=== PATIENT | male | born 1945 | race Caucasian/White ===

== ENCOUNTER → 2016-10-14 | Outpatient (CLI) | payer OTHER ==
--- NOTE | 2016-10-14 10:51 | US ---
Neck Ultrasound Indication: Nontoxic single thyroid nodule. Technique: Thyroid ultrasound is performed. Comparison: CT scan of the neck March 23, 2016. Findings: The right thyroid gland measures 4.6 x 2.9 x 2.2 cm. The left thyroid gland measures 4.3 x 2.1 x 1.7 cm. In the right thyroid gland, there is a single heterogeneous solid nodule of 3.4 x 2.5 x 1.9 cm. There appear to be specks of calcification within this nodule. It is relatively decreased in vascularity compared to the surrounding thyroid gland. Incidentally noted is a mild amount of carotid plaque. The thyroid isthmus is normal at 3 mm. The lef t thyroid gland is homogeneous. Impression: Dominant hypovascular solid right thyroid nodule of 3.4 x 2.5 x 1.9 cm, with intrinsic sp ecks of calcification. This is unchanged in size compared to prior CT scan in March 20162015. Given i ts ultrasound characteristics, FNA is strongly suggested based on guidelines published in Radiology, [facility] journal.
== END ==
LOC: FIMAGING 08:21
PROVIDERS: ATTEND Internal Medicine
DX: E04.1 Nontoxic single thyroid nodule (principal)

== ENCOUNTER 2016-10-19 08:32 | Inpatient (IN) | payer OTHER ==
[2016-09-25 09:41] LABS: % IMMATURE GRANULYOCYTES 0.6 % (0.0-1.1); ABSOLUTE IMMATURE GRANULOCYTES 0.04 10^3/uL (0.00-0.10); ADD DIFF? NO; ADD MORPH? NO; ADD SCAN? NO; ATYPICAL LYMPHOCYTE FLAG 0 (0-99); FRAGMENT RBC FLAG 0 (0-99); HEMATOCRIT 47.8 % (40.0-51.0); HEMOGLOBIN 16.1 g/dL (13.7-17.5); LEFT SHIFT FLG 0 (0-99); LIPEMIA HEMOLYSIS FLAG 80 (0-99); MEAN CELL HEMOGLOBIN 30.7 pg (27.9-34.1); MEAN CELL HEMOGLOBIN CONCENTR. 33.7 g/dL (32.4-36.7); MEAN PLATELET VOLUME 9.7 fL (8.7-11.7); PLATELET CLUMPS FLAG 0 (0-99); PLATELET COUNT 188 10^3/uL (150-400); RED BLOOD CELL COUNT 5.25 10^6/uL (4.40-6.38); RED CELL DISTRIBUTION WIDTH 12.5 % (11.5-15.2)
[2016-09-25 10:35] LABS: ANION GAP 10 mEq/L (8-16); CALCIUM 9.6 mg/dL (8.5-10.4); CARBON DIOXIDE 28 mEq/l (22-31); CHLORIDE 106 mEq/L (97-110); CREATININE 1.1 mg/dL (0.7-1.3); GLOMERULAR FILTRATION RATE > 60; GLUCOSE 110 mg/dL (70-100); POTASSIUM 4.9 mEq/L (3.5-5.2); SODIUM 144 mEq/L (134-144)
[2016-10-19] MEDS ORDERED: LR 1,000 ML IV ONE (09:09)
[2016-10-19] MEDS ORDERED: ROPIVACAINE HCL 20 MG/10 ML INJ EP ONE (09:18)
[2016-10-19] MEDS ORDERED: MIDAZOLAM 2 MG/2 ML VIAL ONE (10:48)
[2016-10-19] MEDS ORDERED: ROPIVACAINE HCL 150 MG/30 ML INJ ONE (10:53)
[2016-10-19] MEDS ORDERED: PROPOFOL 200 MG/20 ML VIAL ONE (10:55)
[2016-10-19] MEDS ORDERED: ROCURONIUM 50 MG/5 ML VIAL ONE (10:55)
[2016-10-19] MEDS ORDERED: fentaNYL 250 MCG/5 ML INJ ONE (10:55)
[2016-10-19] MEDS ORDERED: DEXAMETHASONE 4 MG/ML VIAL ONE (10:55)
[2016-10-19] MEDS ORDERED: ceFAZolin 2 GM/DEXTROSE 100 ML IV ONE (11:00)
[2016-10-19] MEDS ORDERED: LIDOCAINE 2% 100 MG/5 ML SYR IVP ONE (11:10)
[2016-10-19] MEDS ORDERED: PHENYLEPHRINE HCL 100 MCG/ML SYR ONE (11:25)
[2016-10-19] MEDS ORDERED: PROMETHAZINE HCL 25 MG/ML INJ IVP PRN (14:09)
[2016-10-19] MEDS ORDERED: ONDANSETRON 4 MG/2 ML VIAL IVP PRN (14:09)
[2016-10-19] MEDS ORDERED: ACETAMINOPHEN 325 MG TAB PO PRN (14:09)
[2016-10-19] MEDS ORDERED: OXYCODONE/APAP 5/325 TAB PO PRN (14:09)
--- NOTE | 2016-10-19 15:51 | DX ---
Portable Right Shoulder, 2 Views, at 2:23 p.m. Clinical History: 70-year-old male in the PACU after a right total shoulder replacement. Comparison Study: CT scan of the right upper extremity, dated April 02, 2016. Findings: In the interim, the patient has undergone a right shoulder arthroplasty, with anatomic ali gnment. There is some degenerative change of the acromioclavicular joint. There is some right basilar discoid subsegmental atelectasis. Impression: Status post right shoulder arthroplasty, with anatomic alignment.
--- NOTE | 2016-10-19 16:58 | GOP ---
[f rep st] OPERATIVE REPORT DATE OF OPERATION: 10/19/2016 SURGEON: Devin Martinez MD ABRASIVE WATER JET CUTTER OPERATOR: Suni oHugh, PAC, medically required for positioning of the arm during total shoulder replacement and careful retraction of vital neurovascular structures. PREOPERATIVE DIAGNOSIS: Right shoulder osteoarthritis, end-stage. POSTOPERATIVE DIAGNOSIS: Right shoulder osteoarthritis, end-stage. PROCEDURE PERFORMED: 1. Open right total shoulder replacement. 2. Open subpectoral biceps tenodesis. 3. Open loose body removal, 5 x 1 cm loose body in the bicipital sheath. FINDINGS: ESTIMATED BLOOD LOSS: 300 cc. Total surgical time was 2 hours. INDICATIONS: 70-year-old male with a history of cardiac issues with a painful right total shoulder osteoarthritis. Clinical radiographic and CT scan confirmed intact cuff as well as fairly neutral glenoid with osteoarthritis. The patient elects for operative intervention after failing conservative management. The patient identified in the preoperative holding area. He was feeling well today. He just got over a head cold. The right side was identified. was at the bedside for questions and answers. MRSA screen was negative. Preoperative medical clearance and cardiac clearance, deemed an acceptable candidate for surgery. DESCRIPTION OF PROCEDURE: The patient was brought into the operating room. Beach chair positioned. General anesthesia, interscalene block. All extremities well padded. The head of bed was about 35 degrees. The right upper extremity was prepped and draped in the usual sterile fashion. Surgical time-out was performed. Standard coracoid humeral incision was made. Deltopectoral interval was developed. Cephalic vein was taken laterally. The conjoined tendon was identified. All bleeders were cauterized. The clavipectoral fascia was taken. The conjoined tendon was freed up of adhesions. The subdeltoid bursa was freed up of adhesions. A Kolbel retractor was placed. The subscapularis was identified. The inferior arcuate arteries were identified and ligated. We did a subscapularis tenotomy. We used FiberTape in Noam-Den fashion for retraction and for fixing the tenotomy at the end. We did a full inferior capsular release with finger protection of the axillary nerve when we swept inferior to the subscapularis. We did a capsulectomy, a labrectomy anteriorly. With progressive external rotation, we freed up osteophytes inferiorly and posteriorly. In about 30 degrees of retroversion, we did a humeral osteotomy at about 135 degrees. We placed a humeral head protector, took the arm out of the Cool mejia, and placed the arm on a padded Pabon for glenoid exposure. We completed the inferior capsular release and posterior capsular release. We had a nice pocket in the back. We had to free up a little bit of the pec tendon, about 2 cm, to allow posterior retraction of the humerus. The glenoid looked about a medium to small. We found the center-center tod, and performed an Arthrex pegged glenoid technique with cannulated and Nautilus reamers. We placed a trial, looked excellent. I then cemented in the real with bone graft centrally as well as the cement superior and inferiorly on the smiley face. The arm was placed in a Cool mejia. We dislocated the humeral head, placed Hohmann's above and below, and performed a central canal reaming, broaching up to 10, and then placed the real 10 stem in there. We then trialed the head, and had nice coverage. We had to eccentrically put it posteriorly to cover and so we did not have to have any ledge or overhang anteriorly. We tried a 50 and a 52, and the 52 had better coverage. We had about 40% translation posteriorly. There was not too much tension on the subscapularis, and we placed the real implant according to predetermined wynn. The arm was taken through a gentle range of motion, and we had a nice approximation of the joint. We repaired the subscapularis with horizontal mattress stitches, and then an over running stitch with another FiberTape from the rotator interval down inferiorly. The wound was copiously washed out with 500 cc of warm normal saline, 2-0 PDS for closure, and then 3-0 Monocryl for skin closure. Mastisol and Steri-Strips were used, Xeroform, 4 x 4's, and Medipore tape applied. IMPLANTS USED: 1. Arthrex Boone #10 stem. 2. Arthrex humeral head 52 mm diameter x 20 mm thickness and a medium vault lock glenoid by Arthrex cemented with bone graft centrally. COMPLICATIONS: None. DISPOSITION: Extubated, awake to the PACU in stable condition. /[id number]/MODL MTDD
[2016-10-19] MEDS: KETOROLAC 30 MG/1 ML SDV IVP SCH ×2 (17:14→23:46)
[2016-10-19] MEDS: D5W 1/2 NS W/ 20 KCl/L 1,000 ML IV SCH (17:14)
[2016-10-19] MEDS ORDERED: ceFAZolin 2 GM/DEXTROSE 100 ML IV SCH (19:00)
[2016-10-19 19:27] VITALS: RESP 16
[2016-10-19] MEDS: DOCUSATE SODIUM 100 MG CAP PO SCH (20:05)
[2016-10-19] MEDS: ceFAZolin 2 GM in D5W 100 ML IV SCH (20:05)
[2016-10-20] MEDS: ceFAZolin 2 GM in D5W 100 ML IV SCH (02:44)
[2016-10-20] MEDS: D5W 1/2 NS W/ 20 KCl/L 1,000 ML IV SCH (03:33)
[2016-10-20] MEDS: KETOROLAC 30 MG/1 ML SDV IVP SCH ×2 (05:50→12:18)
[2016-10-20] MEDS: DOCUSATE SODIUM 100 MG CAP PO SCH (08:48)
[2016-10-20] MEDS ORDERED: ENOXAPARIN 40 MG/0.4 ML SYR SC SCH (09:00)
--- NOTE | 2016-10-20 10:05 | SOAPPROG ---
SOAP Progress Note Assessment/Plan: Assessment: POD 1 s/p R TSA, open subpectoral biceps tenodesis, open loose body removal 5ml in the bicipital sheath Plan: Pending PT/OT clearance, Reymundo to be d/c later today. His has already gotten Rx at pharmacy. RTC within 1 week for f/u with Dr. Martinez and PT progression Begin formal PT within 2 weeks 10/20/16 10:05 10/20/16 10:07 Subjective: Reymundo is doing great, 1/10 pain while at rest. Has ambulated to the restroom and has had BM. Using ice machine on R shoulder and is sitting comfortably. Awaiting PT so as to be discharged home. No acute issues overnight; all questions answered. Objective: Vital Signs Temp Pulse Resp BP Pulse Ox 36.8 C 89 16 102/71 95 10/20/16 07:37 10/20/16 07:37 10/20/16 07:37 10/20/16 07:37 10/20/16 07:37 Laboratory Results 09/25/16 09:18 09/25/16 09:18 10/19/16 10/20/16 10/21/16 05:59 05:59 05:59 Intake Total 3450 Output Total 900 Balance 2550 AAO X3 RRR Unlabored breathing NTTP near surgical incision without erythema, warmth near incision Dressing C/D/I; Sensation intact RUE Strength intact Distal pulses 3+ Cap refill ><2 sec BLE without edema ICD10 Worksheet Patient Problems: Problems Problem Status Diagnosed Ataxia Acute Nausea & vomiting Acute TIA (transient ischemic attack) Acute
[2016-10-20 12:08] VITALS: BP 116/81; PULSE 112; TEMP 98.5; O2SAT 92
== END 2016-10-20 13:52 | disposition home or self-care (01) | DRG 483 ==
LOC: FSGY 08:32 → F3N 14:09
PROVIDERS: ADMIT Orthopaedic Surgery; ATTEND Orthopaedic Surgery
DX: M19.011 Primary osteoarthritis, right shoulder (principal); M75.21 Bicipital tendinitis, right shoulder; M24.011 Loose body in right shoulder; I42.9 Cardiomyopathy, unspecified; I10 Essential (primary) hypertension; Z95.0 Presence of cardiac pacemaker
CPT/HCPCS: 97161-GP; 97165-GO; C1713; G8978-GP-CI; G8979-GP-CI; G8980-GP-CI; G8987-GO-CJ; G8988-GO-CJ; G8989-GO-CJ; J0171; J0690; J1100; J1650; J1885; J2001; J2250; J2370; J2704; J2795; J3010

== ENCOUNTER → 2017-02-19 | Outpatient (CLI) | payer OTHER | LOC: FIMAGING 12:08 | PROVIDERS: ATTEND Orthopaedic Surgery | DX: M19.012 Primary osteoarthritis, left shoulder (principal); M24.012 Loose body in left shoulder ==

== ENCOUNTER 2017-06-28 09:36 | Inpatient (IN) | payer OTHER ==
[2017-06-09 13:58] LABS: % IMMATURE GRANULYOCYTES 0.7 % (0.0-1.1); ABSOLUTE IMMATURE GRANULOCYTES 0.04 10^3/uL (0.00-0.10); ADD DIFF? NO; ADD MORPH? NO; ADD SCAN? NO; ATYPICAL LYMPHOCYTE FLAG 10 (0-99); FRAGMENT RBC FLAG 0 (0-99); HEMATOCRIT 44.5 % (40.0-51.0); HEMOGLOBIN 15.2 g/dL (13.7-17.5); LEFT SHIFT FLG 0 (0-99); LIPEMIA HEMOLYSIS FLAG 90 (0-99); MEAN CELL HEMOGLOBIN 30.9 pg (27.9-34.1); MEAN CELL HEMOGLOBIN CONCENTR. 34.2 g/dL (32.4-36.7); MEAN CELL VOLUME 90.4 fL (81.5-99.8); MEAN PLATELET VOLUME 9.6 fL (8.7-11.7); PLATELET CLUMPS FLAG 0 (0-99); PLATELET COUNT 183 10^3/uL (150-400); RED BLOOD CELL COUNT 4.92 10^6/uL (4.40-6.38); RED CELL DISTRIBUTION WIDTH 12.7 % (11.5-15.2)
[2017-06-09 14:34] LABS: ANION GAP 9 mEq/L (8-16); CALCIUM 9.7 mg/dL (8.5-10.4); CARBON DIOXIDE 24 mEq/l (22-31); CHLORIDE 105 mEq/L (97-110); GLOMERULAR FILTRATION RATE > 60; GLUCOSE 114 mg/dL (70-100); POTASSIUM 3.7 mEq/L (3.5-5.2); SODIUM 138 mEq/L (134-144)
--- NOTE | 2017-06-28 09:24 | PDHPUP ---
History & Physical Update H&P update statement: This history and physical update is based on an assessment of the patient which was completed after admission or registration (within 24 hours), but prior to the surgery/procedure. H&P update: H&P reviewed & patient examined (no changes, seen in clinic for pre op appointment on 05/26/17.)
--- NOTE | 2017-06-28 10:00 | PDANEPAE ---
ANE History of Present Illness L total shoulder arthroplasty ANE Past Medical History - Cardiovascular History Hx Hypertension: Yes Hx Arrhythmias: Yes Hx Chest Pain: No Hx Coronary Artery / Peripheral Vascular Disease: No Hx CHF / Valvular Disease: Yes Hx Palpitations: No Cardiovascular History Comment: htn,"bi-ventric synchronization". hyperlipidemia. chf 03/02/16. seen at [facility] - Pulmonary History Hx COPD: No Hx Asthma/Reactive Airway Disease: No Hx Recent Upper Respiratory Infection: No Hx Oxygen in Use at Home: No Hx Sleep Apnea: No Sleep Apnea Screening Result - Last Documented: Positive Pulmonary History Comment: kevon triggers - Neurologic History Hx Cerebrovascular Accident: No Hx Seizures: No Hx Dementia: No Neurologic History Comment: 03-24-16 off balance, came to [facility] -was dx as poss TIA - Endocrine History Hx Diabetes: No - Renal History Hx Renal Disorders: No - Liver History Hx Hepatic Disorders: No - Neurological & Psychiatric Hx Hx Neurological and Psychiatric Disorders: No - Cancer History Hx Cancer: No - Congenital Disorder History Hx Congenital Disorders: No - GI History GERD: no Hx Gastrointestinal Disorders: No - Other Health History Other Health History: OA -painful L shoulder. glaucoma. wears glasses. bilateral hearing aides - Chronic Pain History Chronic Pain: No - Surgical History Prior Surgeries: R total shoulder 10-20-16. ICD implantation. pilonidal cyst removal. wisdom teeth ANE Review of Systems Review of Systems: - Exercise capacity METS (RN): 4 METS - Pacemaker Pacemaker Type: Permanent Pacer/Defib Pacemaker Head Girls Golf Coach: Medtronic Pacemaker Model: PROTECTA SAFETY LAMP KEEPER-D Pacemaker Mode: DDD Pacemaker Set Rate: 50 Date Pacemaker Last Checked: 03/29/17 ANE Patient History - Allergies Allergies/Adverse Reactions: Penicillins Allergy (Verified 06/02/17 11:03) Rash - Home Medications Home Medications: Atorvastatin Calcium [Lipitor 20 mg (*)] 20 mg PO DAILY 01/16/12 [Last Taken 02/27] Allopurinol [Allopurinol 300 MG (RX)] 300 mg PO HS 03/23/16 [Last Taken 10/18/16 ] Carvedilol [Coreg (*)] 25 mg PO BIDMEAL 03/23/16 [Last Taken 10/19/16] Dorzolamide/Timolol [Cosopt (*)] 1 drop LEFTEYE BID 03/23/16 [Last Taken ] Latanoprost 0.005% [Xalatan 0.005% (*)] 1 drop EACHEYE HS 03/23/16 [Last Taken 10/19/16] amLODIPine BESYLATE [Norvasc 5 mg (*)] 5 mg PO DAILY 09/18/16 [Last Taken ] Sacubitril/Valsartan 97/103Mg [Entresto 97 mg/103 mg] 1 ea PO BID 10/19/16 [ Last Taken 10/18/16 21:00] Aspirin [Aspirin 81mg (*)] 81 mg PO DAILY 05/31/17 [Last Taken Unknown] Clopidogrel Bisulfate [Plavix (*)] 75 mg PO DAILY 05/31/17 [Last Taken Unknown] - Anes Hx Hx Anesthesia Complications (with details): Pt. reports partial R thumb numbness lasting several months following his R TSA in 10/30 - Smoking Hx Smoking Status: Never smoked Marijuana use: No - Alcohol Use Alcohol Use: Other (1 drink x 2-3/week) - Family Anes Hx Family Anes Hx: none Family Hx Anesthesia Complications: none ANE Labs/Vital Signs - Labs Result Diagrams: 06/09/17 13:52 06/09/17 13:52 - Vital Signs Height: 177.8 cm Weight: 89.358 kg ANE Physical Exam - Airway Neck exam: FROM Mallampati Score: Class 1 Mouth exam: normal dental/mouth exam (upper caps) - Pulmonary Pulmonary: clear to auscultation - ASA Status ASA Status: III ANE Anesthesia Plan Anesthesia Plan: general endotracheal anesthesia Regional Anesthesia: interscalene BP NB, infraclavicular BP NB (ISNB vs SPNB depending on patient's anatomy)
[2017-06-28] MEDS ORDERED: MIDAZOLAM 2 MG/2 ML VIAL IVP ONE (10:07)
[2017-06-28] MEDS ORDERED: ROPIVACAINE HCL 20 MG/10 ML INJ EP ONE (10:09)
[2017-06-28] MEDS ORDERED: PROPOFOL 200 MG/20 ML VIAL ONE (10:15)
[2017-06-28] MEDS ORDERED: fentaNYL 100 MCG/2 ML INJ ONE (10:15)
[2017-06-28] MEDS ORDERED: ROCURONIUM 50 MG/5 ML VIAL ONE ×2 (10:17→12:35)
[2017-06-28] MEDS ORDERED: DEXAMETHASONE 4 MG/ML VIAL ONE (10:18)
[2017-06-28] MEDS ORDERED: CLINDAMYCIN 900 MG/DEXTROSE/50 ML BAG IV ONE (10:31)
--- NOTE | 2017-06-28 10:31 | PDGENHP ---
History & Physical Chief Complaint: left shoulder pain History of Present Illness: mukesh is a pleasant 71 yo male, presenting today for left TSA to be performed by dr. layne, patient had right tsa perfromed 10/30 with good relief. reports left shoulder pain is constant, getting worse, preventing him from doing his ADL's. denies f/c/n/v/d/c ANE Past Medical History - Cardiovascular History Hx Hypertension: Yes Hx Arrhythmias: Yes Hx Chest Pain: No Hx Coronary Artery / Peripheral Vascular Disease: No Hx CHF / Valvular Disease: Yes Hx Palpitations: No Cardiovascular History Comment: htn,"bi-ventric synchronization". hyperlipidemia. chf 03/02/16. seen at [facility] - Pulmonary History Hx COPD: No Hx Asthma/Reactive Airway Disease: No Hx Recent Upper Respiratory Infection: No Hx Oxygen in Use at Home: No Hx Sleep Apnea: No Sleep Apnea Screening Result - Last Documented: Positive Pulmonary History Comment: kevon triggers - Neurologic History Hx Cerebrovascular Accident: No Hx Seizures: No Hx Dementia: No Neurologic History Comment: 03-24-16 off balance, came to [facility] -was dx as poss TIA - Endocrine History Hx Diabetes: No - Renal History Hx Renal Disorders: No - Liver History Hx Hepatic Disorders: No - Neurological & Psychiatric Hx Hx Neurological and Psychiatric Disorders: No - Cancer History Hx Cancer: No - Congenital Disorder History Hx Congenital Disorders: No - GI History GERD: no Hx Gastrointestinal Disorders: No - Other Health History Other Health History: OA -painful L shoulder. glaucoma. wears glasses. bilateral hearing aides - Chronic Pain History Chronic Pain: No - Surgical History Prior Surgeries: R total shoulder 10-20-16. ICD implantation. pilonidal cyst removal. wisdom teeth A/P Assessment: 71 yo male, presenting for left total shoulder arthroplasty to be performed due to left shoulder pain -pre op: abx: clinda pre operatively, -proph: bilateral jamil hoes and scd's -scaline block per anesthesia
[2017-06-28] MEDS ORDERED: CLINDAMYCIN 900 MG/DEXTROSE 50 ML IV ONE (10:32)
[2017-06-28] MEDS ORDERED: ROPIVACAINE HCL 150 MG/30 ML INJ ONE (10:32)
[2017-06-28] MEDS ORDERED: ONDANSETRON 4 MG/2 ML VIAL IVP ONE (10:32)
[2017-06-28] MEDS ORDERED: PHENYLEPHRINE 10 MG/ML SDV ONE (10:36)
[2017-06-28] MEDS ORDERED: MIDAZOLAM 2 MG/2 ML VIAL ONE (11:13)
[2017-06-28] MEDS ORDERED: epHEDrine SULFATE 10 MG/ML SYR ONE (12:29)
[2017-06-28] MEDS ORDERED: ONDANSETRON 4 MG/2 ML VIAL ONE (12:51)
[2017-06-28] MEDS ORDERED: NEOSTIGMINE METHYLSULFATE 3 MG/3 ML SYR ONE (13:49)
[2017-06-28] MEDS ORDERED: GLYCOPYRROLATE 0.2 MG/1 ML VIAL ONE (13:49)
[2017-06-28] MEDS ORDERED: fentaNYL 100 MCG/2 ML INJ IVP PRN (14:05)
[2017-06-28] MEDS ORDERED: NALOXONE HCL 0.4 MG/ML INJ IVP PRN (14:05)
--- NOTE | 2017-06-28 14:10 | POSTOPPROG ---
Post Op Note Date of Operation: 06/28/17 Surgeon: Devin Martinez Backup Administrator: le granda PA-c Anesthesia: Epidural Pre-op Diagnosis: left shoulder oa Post-op Diagnosis: left shoulder oa Indication: left shoulder oa Procedure: left total shoulder arthropalsty Findings: grade 4 arthritis Inf/Abcess present in the surg proc area at time of surgery?: No Depth: Deep Incisional (Fascial) EBL: 100-500 Complications: none
[2017-06-28] MEDS ORDERED: HYDROmorphONE/DILAUDID 1 MG/ML INJ IVP PRN (15:03)
[2017-06-28] MEDS ORDERED: ACETAMINOPHEN 325 MG TAB PO PRN (15:03)
[2017-06-28] MEDS ORDERED: HYDROCODONE/APAP 5/325 TAB PO PRN (15:03)
[2017-06-28] MEDS ORDERED: ONDANSETRON 4 MG/2 ML VIAL IVP PRN (15:03)
[2017-06-28] MEDS ORDERED: PROMETHAZINE HCL 25 MG/ML INJ IVP PRN (15:03)
[2017-06-28] MEDS ORDERED: D5W 1/2 NS W/ 20 KCl/L 1,000 ML IV SCH (15:15)
--- NOTE | 2017-06-28 15:29 | GOP ---
[f rep st] OPERATIVE REPORT DATE OF OPERATION: 06/28/2017 SURGEON: Devin Martinez MD COAT FITTER: media center assistant, Henry Sales PA-C, medically required for positioning of the arm during open total shoulder and loose body removal, and careful retraction of vital neurovascular stru ctures. PREOPERATIVE DIAGNOSIS: 1. Left shoulder osteoarthritis. 2. Loose body. 3. Biceps tendinopathy. POSTOPERATIVE DIAGNOSIS: PROCEDURE PERFORMED: 1. Open left total shoulder replacement. 2. Open biceps tenodesis to the pectoralis tendon. 3. Open loose body removal. FINDINGS: ESTIMATED BLOOD LOSS: 200 cc. INDICATIONS: This 71-year-old male underwent a successful right total shoulder replacement earlier t his year, and presents for a left shoulder replacement. Prior op note reviewed, reveals a 10 stem, s hort stem Arthrex with a [address] scan confirms a slightly retroverted glenoid with good bone stock. MRSA swab was negative. Patient elects for operative intervention of painful left shoulder. DESCRIPTION OF PROCEDURE: The patient identified in the preoperative holding area. Consent, lateral ity and preoperative antibiotics were confirmed and delivered. All questions were answered. His wif e is at the bedside for questions and answers. The left shoulder was identified. 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 The incision for the pacer was approximately 3 cm from the deltopectoral incision. The patient brought into the operating room. Interscalene block by Anesthesia. 30-degree head of be d, beach chair position. The back of the beach chair was kept in place for excellent glenoid exposur e. The left upper extremity was prepped and draped in the usual sterile fashion. Surgical time-out was performed. The incision was approximately 3 cm away from the axillary incision for the subcutaneous pacer. We tried to make this symmetric and in line with his contralateral side. Deltopectoral inter loli. The cephalic vein was diminutive and small. We took this medially. We freed up subcutaneous t issue, subdeltoid adhesions. We encountered the conjoined tendon. We did clavipectoral fascia excis ion. We placed Kolbel retractors underneath the conjoined tendon and deltoid. We found the biceps w as thickened and enlarged; we tenodesed this to the pec tendon that we had to take down about a centi meter and a half from our posterior exposure. We did a lesser tuberosity osteotomy with a flat osteo tome. We took down the subscap adhesions. We cut the capsule. Did a labrectomy. With finger palpa tion just inferior to the subscap, we found the axillary nerve and did an inferior capsular release w ith Pabon scissors. We then exposed the humeral head with progressive external rotation and adduction . We did an osteophytectomy inferiorly. We did a freehand humeral osteotomy at about 130 degrees, m atching his anatomic neck. We had Homans posterior humeral head and superior. Just about a centimet er posterior to the bicipital groove, we found the canal. We made a central/central, and broached up to a 10 mm and had a 10 mm broach, and had nice rotational stability. We placed a humeral head protector cut guide. We placed the arm on a padded Pabon. We posteriorly re duced the humeral head, had excellent glenoid exposure, marked the center/center position and with th e cannulated system, we reamed for a large glenoid. Prepped the glenoid and cemented the superior an d inferior holes, and bone grafted the center hole. We had a nice fit and fill of the large glenoid. We then placed the arm in a Cool mejia and dislocated the shoulder again, with progressive ex ternal rotation and adduction, and placed the real stem after placing 2 holes in the bicipital groove for the lesser tuberosity osteotomy repair and subscap repair. We used the Arthrex suture technique . With the superior and inferior limbs tied off, the diagonal crossed and the medial ones then tied off for tensioning. We put a [id number]-fm-mjold stitch in the rotator interval. The wound was copiously washed out with 500 cc of warm normal saline. 2-0 PDS for closure, 3-0 Monoc ryl and Vicryl for closure. Skin was closed with 3-0 Prolene. 10 cc of 0.2% ropivacaine was injecte d throughout the incision. Mastisol, Steri-Strips, Xeroform, and Mepilex dressing was applied, water proof. COMPLICATIONS: None. DISPOSITION: Extubated, awake to the PACU in stable condition. TOTAL SURGICAL TIME: 2 hours. /[id number]/MODL
--- NOTE | 2017-06-28 15:48 | POSTANESTH ---
Post Anesthetic Evaluation Cardiovascular Status: Similar to Pre-Op Cond Respiratory Status: Normal, Stable Level of Consciousness/Mental Status: Can Participate in Eval Pain Control: Adequate, Prn Tx Ordered Nausea/Vomiting Control: Adequate, Prn Tx Ordered Complications Possibly Related to Anesthesia: None Noted
[2017-06-28] MEDS: LR 1,000 ML IV SCH (17:35)
[2017-06-28] MEDS: KETOROLAC 15 MG/1 ML SDV IVP SCH (17:35)
[2017-06-28] MEDS: CLINDAMYCIN 600 MG/DEXTROSE 50 ML IV SCH (20:10)
[2017-06-28] MEDS: DOCUSATE SODIUM 100 MG CAP PO SCH (20:10)
[2017-06-29] MEDS: KETOROLAC 15 MG/1 ML SDV IVP SCH ×3 (00:34→11:05)
[2017-06-29] MEDS: CLINDAMYCIN 600 MG/DEXTROSE 50 ML IV SCH ×2 (03:00→14:14)
[2017-06-29] MEDS: LR 1,000 ML IV SCH (06:32)
[2017-06-29 07:58] VITALS: RESP 16
[2017-06-29] MEDS: OXYCODONE/APAP 5/325 TAB PO PRN ×2 (08:35→13:46)
[2017-06-29] MEDS: DOCUSATE SODIUM 100 MG CAP PO SCH (08:35)
[2017-06-29] MEDS ORDERED: ENOXAPARIN 40 MG/0.4 ML SYR SC SCH (09:00)
[2017-06-29] MEDS ORDERED: CARVEDILOL 25 MG TAB PO SCH ×2 (10:00)
[2017-06-29] MEDS ORDERED: amLODIPine BESYLATE 5 MG TAB PO SCH (10:00)
[2017-06-29] MEDS ORDERED: DORZOLAMIDE/TIMOLOL 10 ML OPHT.BTL LEFTEYE SCH (10:00)
[2017-06-29] MEDS ORDERED: SACUBITRIL PO SCH ×3 (10:00→21:00)
[2017-06-29] MEDS ORDERED: CLOPIDOGREL BISULFATE 75 MG TAB PO SCH (10:00)
[2017-06-29] MEDS ORDERED: ASPIRIN 81 MG CHEWABLE TAB PO SCH (10:00)
[2017-06-29] MEDS ORDERED: VALSARTAN PO SCH ×3 (10:00→21:00)
[2017-06-29] MEDS ORDERED: ATORVASTATIN CALCIUM 20 MG TAB PO SCH (10:00)
[2017-06-29] MEDS ORDERED: FLU VACC QS 2017-18 (3YR+)/PF 0.5 ML SYR (FLUARIX QUAD) IM ONE (10:38)
[2017-06-29 11:30] VITALS: BP 99/61; PULSE 87; TEMP 98.7; O2SAT 91
--- NOTE | 2017-06-29 14:48 | ASDISCHSUM ---
Discharge Information Plan Status:Home with No Needs Medically Cleared to Leave: Discharge Date:06/29/2017 02:35 PM CM D/C Disposition:Home, Routine, Self-Care ADT D/C Disposition:Home, Routine, Self-Care Projected Discharge Date:06/29/2017 02:35 PM Transportation at D/C: Discharge Delay Reason: Follow-Up Date:06/29/2017 02:35 PM Discharge Slot: Final Diagnosis: Placement Information Patient Contact Information Contact Name:ANGELA Relationship: Address:[address] Work Phone: City:[place] Alternate Phone: [facility]/Zip Code:[place] [address] Email: Financial Information Financial Class:Medicare Advantage Plans Primary Plan Desc:[facility] ADVANTAGE PLANS Primary Plan Number:[id number] Secondary Plan Desc: Secondary Plan Number: Assessment Information BC CM Progress Note CM Note CM Note Notes: Pt medically stable for d/c, no CM d/c needs identified. Date Signed: 06/29/2017 02:47 PM Electronically Signed By:MARYURI Gusman Intervention Information
[2017-06-29] MEDS ORDERED: CARVEDILOL 25 MG PO SCH ×2 (18:00)
[2017-06-29] MEDS ORDERED: LATANOPROST 0.005% EACHEYE SCH ×2 (21:00)
[2017-06-29] MEDS ORDERED: ALLOPURINOL 300 MG TAB PO SCH (21:00)
[2017-06-29] MEDS ORDERED: LATANOPROST 0.005% 2.5 ML OPHT DROPS EACHEYE SCH (21:00)
[2017-06-29] MEDS ORDERED: ALLOPURINOL 300 MG PO SCH ×2 (21:00)
[2017-06-29] MEDS ORDERED: TIMOLOL LEFTEYE SCH ×2 (21:00)
[2017-06-29] MEDS ORDERED: DORZOLAMIDE LEFTEYE SCH ×2 (21:00)
[2017-06-30] MEDS ORDERED: amLODIPine BESYLATE 5 MG TAB PO SCH (09:00)
[2017-06-30] MEDS ORDERED: CLOPIDOGREL BISULFATE 75 MG PO SCH ×2 (09:00)
[2017-06-30] MEDS ORDERED: ASPIRIN 81 MG CHEWABLE TAB PO SCH (09:00)
[2017-06-30] MEDS ORDERED: ATORVASTATIN CALCIUM 20 MG TAB PO SCH (09:00)
[2017-06-30] MEDS ORDERED: NON-FORMULARY NEW DRUG (Atorvastatin Calcium [Lipitor 20 Mg (*)] 20 MG) PO SCH (09:00)
[2017-06-30] MEDS ORDERED: ATORVASTATIN CALCIUM 20 MG PO SCH (09:00)
[2017-06-30] MEDS ORDERED: NON-FORMULARY NEW DRUG (Aspirin [Aspirin 81mg (*)] 81 MG) PO SCH (09:00)
[2017-06-30] MEDS ORDERED: AMLODIPINE BESYLATE 5 MG PO SCH ×2 (09:00)
[2017-06-30] MEDS ORDERED: ASPIRIN 81 MG PO SCH (09:00)
== END 2017-06-29 14:35 | disposition home or self-care (01) | DRG 483 ==
LOC: F3N 09:36
PROVIDERS: ADMIT Orthopaedic Surgery; ATTEND Orthopaedic Surgery
PROC: 0LS20ZZ Reposition Left Shoulder Tendon, Open Approach (ICD-10-PCS; principal; 2017-06-28 11:00)
PROC: 0RCK0ZZ Extirpation of Matter from Left Shoulder Joint, Open Approach (ICD-10-PCS; principal; 2017-06-28 11:00)
PROC: 0RRK0JZ Replacement of Left Shoulder Joint with Synthetic Substitute, Open Approach (ICD-10-PCS; principal; 2017-06-28 11:00)
DX: M19.012 Primary osteoarthritis, left shoulder (principal); M24.012 Loose body in left shoulder; M75.22 Bicipital tendinitis, left shoulder; I11.0 Hypertensive heart disease with heart failure; I50.22 Chronic systolic (congestive) heart failure; I25.10 Atherosclerotic heart disease of native coronary artery without angina pectoris; E78.5 Hyperlipidemia, unspecified; Z95.810 Presence of automatic (implantable) cardiac defibrillator; Z96.611 Presence of right artificial shoulder joint
CPT/HCPCS: G0008; J0171; J1100; J1650; J1885; J2250; J2370; J2405; J2704; J2710; J2795; J3010

== ENCOUNTER 2017-08-13 08:48 | Day surgery (SDC) | payer OTHER ==
[2017-08-13] MEDS ORDERED: BACITRACIN IRRIGATION/NS 50,000 UNITS/1,000 ML BTL IRR ONE (09:01)
[2017-08-13] MEDS ORDERED: diphenhydrAMINE 25 MG CAP PO ONE (09:01)
[2017-08-13] MEDS ORDERED: NS 1,000 ML IV ONE (09:01)
[2017-08-13] MEDS ORDERED: DIAZEPAM 5 MG TAB PO ONE (09:01)
--- NOTE | 2017-08-13 09:17 | PDPROPOC ---
Sedation Plan of Care Sedation Plan of Care: vital signs stable, mental status noted, patient educated of risks, benefits, alternatives, patient can tolerate sedation ASA Classification: ASA 2 Mallampati Score: Class 1 Mallampati Reference Image: Patient passed 3-3-2 rule?: Yes
--- NOTE | 2017-08-13 09:17 | PDHPUP ---
History & Physical Update H&P update statement: This history and physical update is based on an assessment of the patient which was completed after admission or registration (within 24 hours), but prior to the surgery/procedure. H&P update: H&P reviewed & patient examined, no change in patient's condition since H&P completed (EF 39-40%)
--- NOTE | 2017-08-13 09:23 | CPEKG ---
Heart Rate: 73 RR Interval: 822 P-R Interval: 140 QRSD Interval: 184 QT Interval: 460 QTC Interval: 507 P [place]: 76 QRS [place]: 189 T Wave [place]: 53 EKG Severity - ABNORMAL ECG - EKG Impression: ATRIAL-SENSED VENTRICULAR-PACED RHYTHM Electronically Signed By: Jeromy Johnston 14-Aug-2017 13:21:31
[2017-08-13] MEDS ORDERED: VANCOMYCIN 1.25 GM in D5W 250 ML IV ONE (09:30)
[2017-08-13 09:41] LABS: % IMMATURE GRANULYOCYTES 0.6 % (0.0-1.1); ABSOLUTE IMMATURE GRANULOCYTES 0.03 10^3/uL (0.00-0.10); ADD DIFF? NO; ADD MORPH? NO; ADD SCAN? NO; ATYPICAL LYMPHOCYTE FLAG 0 (0-99); FRAGMENT RBC FLAG 0 (0-99); HEMATOCRIT 42.8 % (40.0-51.0); HEMOGLOBIN 14.9 g/dL (13.7-17.5); LEFT SHIFT FLG 0 (0-99); LIPEMIA HEMOLYSIS FLAG 90 (0-99); MEAN CELL HEMOGLOBIN 30.9 pg (27.9-34.1); MEAN CELL HEMOGLOBIN CONCENTR. 34.8 g/dL (32.4-36.7); MEAN CELL VOLUME 88.8 fL (81.5-99.8); PLATELET CLUMPS FLAG 10 (0-99); PLATELET COUNT 212 10^3/uL (150-400); RED BLOOD CELL COUNT 4.82 10^6/uL (4.40-6.38); RED CELL DISTRIBUTION WIDTH 12.9 % (11.5-15.2)
[2017-08-13 09:51] LABS: INR 1.04 (0.83-1.16); PROTIME(PATIENT) 13.8 SEC (12.0-15.0)
[2017-08-13 09:55] LABS: ANION GAP 14 mEq/L (8-16); CALCIUM 9.6 mg/dL (8.5-10.4); CARBON DIOXIDE 22 mEq/l (22-31); CHLORIDE 107 mEq/L (97-110); GLOMERULAR FILTRATION RATE > 60; GLUCOSE 109 mg/dL (70-100); POTASSIUM 4.5 mEq/L (3.5-5.2); SODIUM 143 mEq/L (134-144)
[2017-08-13] MEDS ORDERED: MIDAZOLAM 2 MG/2 ML VIAL ONE (09:55)
[2017-08-13] MEDS ORDERED: fentaNYL 100 MCG/2 ML INJ ONE (09:55)
[2017-08-13] MEDS ORDERED: LIDO/EPI 1% **for epidural** 30 ML SDV ONE (09:55)
[2017-08-13] MEDS ORDERED: LIDOCAINE 1% 300 MG/30 ML SDV ONE (09:55)
[2017-08-13] MEDS ORDERED: BUPIVACAINE 0.5% 30 ML SDV ONE (09:55)
--- NOTE | 2017-08-13 12:09 | PDCTREPORT ---
Cardiothoracic Procedure Rpt Cardiothoracic Procedure Report: Procedure: Removal of a biventricular ICD that had reached end of life. Implantation of a new biventricular pacemaker since his ejection fraction has improved. Patient was brought to the cardiac catheterization lab in fasting state. The old scar in the left subclavian fossa was sterilely prepped and draped. It was infiltrated with 2% xylocaine. Using a 10 blade an incision was made through the old scar. Using a combination of the Bovie catheter and blunt dissection the pacemaker pocket was entered and the old device removed. Leads were sequentially removed from the old device. Appropriate sensitivities and thresholds were confirmed. The new device was delivered to the field after placing a bacitracin soaked sponge in the pocket temporarily. The right ventricular, left ventricular, right atrial leads were implanted appropriately. Setscrews were tightened per industry standards. The defibrillator coils were capped and sealed with 0 Ethibond x2. Sponge was removed from the pocket. It was copiously irrigated. The new device was coiled into the pocket. The coils were placed underneath the device. 3 layer closure was performed using 3 0, 2 0 Vicryl and strata Fix sutures to close the skin. Pressure dressing was applied the patient is taken to recovery for continued care. For details please see attached computer report. Chronic right atrial lead is a model 4. 87860. Serial number [id number]. Right ventricular lead is a model 6. 53710 serial number [id number]. Left ventricular lead is a model 4. 62756 serial number be a [id number]. The removed device is a product number D3 3 for TR GE serial number [id number]. The new vice is a C6 TR 0 1. Serial [id number]. Right atrial sensing is 3.3 mV impedance is 415 Ohms. Capture is 0.6 volts with a pulse with a 0.5 milliseconds. Right ventricular sensing is 10.2 mV. Impedance 705 Ohms. Capture at 1.3 volts with a pulse with a 0.5 milliseconds. Conclusions Successful removal of a biventricular ICD with implantation of a biventricular pacemaker. EBL less than 20 cc. Patient Problems: Problems Problem Status Onset Osteoarthritis, shoulder Acute TIA (transient ischemic attack) Acute Ataxia Acute Nausea & vomiting Acute
--- NOTE | 2017-08-13 14:05 | CPEKG ---
Heart Rate: 70 RR Interval: 857 P-R Interval: 157 QRSD Interval: 186 QT Interval: 480 QTC Interval: 519 P [place]: 41 QRS [place]: 0 EKG Severity - ABNORMAL ECG - EKG Impression: ATRIAL-SENSED VENTRICULAR-PACED RHYTHM Electronically Signed By: Jeromy Johnston 14-Aug-2017 13:21:25
== END 2017-08-13 15:45 | disposition home or self-care (01) ==
LOC: FCATH 08:48
PROVIDERS: ATTEND Internal Medicine Interventional Cardiology
DX: T82.191A Other mechanical complication of cardiac pulse generator (battery), initial encounter (principal); I50.22 Chronic systolic (congestive) heart failure; I25.10 Atherosclerotic heart disease of native coronary artery without angina pectoris; I11.0 Hypertensive heart disease with heart failure; E78.5 Hyperlipidemia, unspecified
CPT/HCPCS: C2621; J2250; J3010; J3370

== ENCOUNTER → 2017-09-29 | Outpatient (CLI) | payer OTHER | LOC: FIMAGING 08:56 | PROVIDERS: ATTEND Physical Medicine & Rehabilitation | DX: M25.511 Pain in right shoulder (principal); Z96.611 Presence of right artificial shoulder joint ==

== ENCOUNTER → 2017-11-10 | Outpatient (CLI) | payer OTHER | LOC: FCPNEURO 21:00 | PROVIDERS: ATTEND Student in an Organized Health Care Education/Training Program | DX: G47.31 Primary central sleep apnea (principal); G47.33 Obstructive sleep apnea (adult) (pediatric) ==